=== PATIENT | male | born 1955 | race Caucasian/White ===

== ENCOUNTER 2016-10-24 06:24 | Day surgery (SDC) | payer BC ==
[~2016-10-24] VITALS: Ht 170.2 cm; Wt 66.2 kg
[~2016-10-24 06:24] MED LIST: ASPI1TAB69 PO; ATOR40TA16 PO; PLAV75TA29 PO; RANI150T PO
[2016-10-24 07:30] VITALS: BP 168/87; PULSE 52; RESP 17; O2SAT 97
[2016-10-24] MEDS ORDERED: VARE1 PO (08:27)
[2016-10-24] MEDS ORDERED: PLAV75TA29 PO (08:27)
[2016-10-24] MEDS ORDERED: HEPARIN-NS/PF INJ 500 ML ONE (08:39)
[2016-10-24] MEDS ORDERED: MIDAZOLAM HCL 5 MG/5 ML VIAL ONE (08:39)
[2016-10-24] MEDS ORDERED: HEPARIN SODIUM - IV 10,000 UNITS/10 ML VIAL ONE (08:40)
[2016-10-24] MEDS ORDERED: NITROGLYCERIN INJ 5 ML ONE (08:40)
[2016-10-24] MEDS ORDERED: MIDAZOLAM HCL 2 MG/2 ML VIAL ONE (09:41)
[2016-10-24] MEDS ORDERED: MORPHINE SULFATE 4 MG/ML INJ IV PUSH PRN (10:15)
[2016-10-24] MEDS ORDERED: LABETALOL HCL 100 MG/20 ML VIAL IVP PRN (10:15)
[2016-10-24] MEDS ORDERED: SODIUM CHLOR 0.9% 250 ML INJ 250 ML IV PRN (10:15)
[2016-10-24] MEDS ORDERED: LIDOCAINE HCL 1% 50 ML VIAL INFIL PRN (10:15)
[2016-10-24] MEDS ORDERED: NITROPRUSSIDE INJ 50 MG in DEXTROSE 5% IN WATER INJ 248 ML IV SCH ×2 (10:15)
[2016-10-24] MEDS ORDERED: BACITRACIN OINT 0.9 GM PKT TOP ONE (10:15)
[2016-10-24] MEDS ORDERED: ATROPINE SULFATE 1 MG/ML VIAL IV PRN (10:15)
[2016-10-24] MEDS ORDERED: MISC INFORMATION XX PRN (10:15)
[2016-10-24] MEDS ORDERED: METOCLOPRAMIDE HCL 10 MG/2 ML VIAL IV PRN (10:15)
[2016-10-24] MEDS ORDERED: cloNIDine HCL 0.1 MG TAB PO PRN (10:15)
[2016-10-24] MEDS ORDERED: oxyCODONE/ACETAMINOPHEN 5 MG/325 MG TAB PO PRN ×2 (10:15)
[2016-10-24] MEDS ORDERED: ONDANSETRON HCL 4 MG/2 ML VIAL IV PRN (10:15)
[2016-10-24] MEDS ORDERED: LORazepam 2 MG/ML VIAL IV PRN (10:15)
[2016-10-24] MEDS ORDERED: POTASSIUM CHLORIDE 20 MEQ CONTROLLED RELEASE TAB PO PRN (10:15)
[2016-10-24] MEDS ORDERED: ENALAPRILAT 1.25 MG/ML VIAL IV PRN (10:15)
--- NOTE | 2016-10-24 10:37 | MA ---
cc: FENG SMALLWOOD DATE 10/24/2016 Peripheral angiography intervention. PROCEDURE PERFORMED 1. Fluoroscopy with interpretation 2. Right lower extremity peripheral angiography with first, second, third order visualization interpretation. 3. Orbital rotational atherectomy with CSI atherectomy catheter of the right common femoral artery. 4. Percutaneous transluminal angioplasty with drug coated balloon of the right common femoral and right superficial femoral arteries. METHOD The risks, benefits and alternatives discussed with the patient. The patient understood and consented to the procedure. The patient brought into the catheterization lab and placed on the catheterization table. The left groin prepped and draped in the usual sterile fashion. The left groin was anesthetized with 2% lidocaine. The left common femoral was cannulated. A 5-Beninese 11 centimeter sheath was placed without difficulty. RIGHT LOWER EXTREMITY PERIPHERAL ANGIOGRAPHY 1. Right common iliac artery has a stent present widely patent. right external and internal iliac arteries have minor luminal irregularities. 2. Right common femoral has moderate calcium present 50% stenosis present. 3. Right superficial femoral is occluded proximally recannulizes distally via profunda collaterals. The profunda is widely patent. 4. Popliteal is widely patent. There is three-vessel runoff below the knee with mild luminal irregularities. PERCUTANEOUS INTERVENTION The right common iliac was selectively engaged with a 5-Beninese rim catheter. A 0.035 inch, 260 cm stiff angle Glidewire was navigated down to the right profunda artery. A 6-Beninese 45 cm. [employer] pinnacle sheath was advanced up-and-over the arch. An angled glide cath was then advanced to the common femoral artery with a great deal of time and effort. The wire was navigated into the right superficial femoral artery occlusion. We were able to cross through this chronic occlusion into the popliteal artery. Selective digital subtraction angiography confirmed intraluminal placement. 0.035 inch, 300 cm stork wire was then advanced down the distal posterior tibial artery. [place] catheter removed. A 5.0 x 200 mm Medtronic balloon was then deployed on two sequential inflations through the chronic occlusion in the superficial femoral artery. Repeat angiography showed CUCA-III flow, some mild residual stenosis. A trailblazer catheter was navigated down the distal posterior tibial artery. Stroke wire removed. A 0.014 inch 335 cm viper wire was navigated down to the distal posterior tibial artery. Trailblazer catheter removed. A 2.00 mm CSI atherectomy catheter was then prepped and advanced over the wire. Two sequential passes for rotational atherectomy was performed at 60,000 and 120,000 revolutions per minute in the right common femoral artery. A 6.0 x 150 mm Medtronic drug coated balloon was advanced down to the mid - distal right superficial femoral artery and deployed for prolonged inflation. A second 6.0 x 120 mm Medtronic drug coated balloon was advanced to the proximal right superficial femoral artery extending back into the right common femoral artery and deployed for prolonged inflation. Repeat angiography showed CUCA-III flow. No significant residual stenosis and three-vessel runoff. Heparin was administered throughout the entire procedure to maintain appropriate coagulation. CONCLUSIONS 1. Chronically occluded right superficial femoral artery. 2. Moderate calcific right common femoral stenosis. 3. Widely patent right common iliac stent. 4. Successful orbital rotational atherectomy and balloon angioplasty with drug coated balloon of the right common femoral artery. 5. Successful balloon angioplasty of drug coated balloon of the right superficial femoral artery. PLAN The patient will be monitored closely for any post procedural complication, continued on aspirin, Plavix, and statin. Hopefully this will translate well with symptomatic improvement. MD SARAH Bloom/JULIANNA /10:09 AM /10:23 AM
[2016-10-26] MEDS ORDERED: CLOPIDOGREL 75 MG TAB PO SCH (09:00)
[2016-10-26] MEDS ORDERED: ASPIRIN EC 81 MG TABEC PO SCH (09:00)
== END 2016-10-24 19:49 | disposition home or self-care (01) ==
LOC: HDOC 06:24 → HDIC 06:24 → HDOC 19:49
PROVIDERS: ATTEND Internal Medicine
DX: I73.9 Peripheral vascular disease, unspecified (principal)
CPT/HCPCS: 37225; 75710; 85002; 86850; 86900; 86901; C1714; C1725; C1751; C1769; C1887; C1893; C2623; J1644; J2250; J3010; 85347